=== PATIENT | male | born 1970 ===

== ENCOUNTER 2017-02-20 13:47 | Observation (INO) | payer BC ==
[2017-02-20] MEDS ORDERED: Thiamine 200 MG/2 ML MDV IM ONE (14:00)
--- NOTE | 2017-02-20 14:08 | EDM.PDOC ---
ED HPI GENERAL MEDICAL PROBLEM - General Chief Complaint: General Stated Complaint: FELL AT [employer] Time Seen by Provider: 02/20/17 13:50 Source of Information: Reports: Patient History Limitations: Reports: No Limitations - History of Present Illness INITIAL COMMENTS - FREE TEXT/NARRATIVE: According to the EMT who witnessed patient, he was at the grocery store buying some grocery and soon he started to have shaking of his arms and legs and tired to hold on to the counter top and next landed on the floor and went unconscious. He did have incontinence of urine, but no stool. No tongue biting. Pt was brought into the emergency room. Pt is now awake in the emergency room appears confused. He claims he is in [place], He knows his name. No weakness in the extremities. HE has good bounding pulse. Vitals are stable. His Blood sugar in the emergency room is 120. Apparently His father who is here with him claims that he is a alcoholic , drink a lot of liqor every day. Pt reached his father's place in [place], [place] last night and since then she has not drunk any alcohol. He has been travelling with them since 3 am today. On the way patient started to have severe shakes and tremors. he could not control the tremors, and father was concerned about patient not having had his alcohol since last night. Pt is getting more alert. Onset: Today Onset Date: 02/20/17 Onset Time: 13:00 Duration: Resolved Prior to Arrival Associated Symptoms: Reports: Confusion, Malaise. Denies: Chest Pain, Cough, Diaphoresis, Fever/Chills, Headaches, Nausea/Vomiting, Shortness of Breath, Weakness ED ROS GENERAL - Review of Systems Review Of Systems: See Below Constitutional: Denies: Fever, Chills, Weakness HEENT: Denies: Throat Pain, Throat Swelling, Vision Change Respiratory: Denies: Shortness of Breath, Cough, Sputum Cardiovascular: Denies: Chest Pain, Lightheadedness GI/Abdominal: Denies: Abdominal Pain, Black Stool, Nausea, Stool Incontinence, Vomiting : Reports: Incontinence. Denies: Dysuria, Flank Pain Musculoskeletal: Denies: Joint Pain, Joint Swelling Skin: Denies: Pruritis, Rash ED EXAM, GENERAL - Physical Exam Exam: See Below Exam Limited By: No Limitations General Appearance: Alert, WD/WN, No Apparent Distress, Other (Pt has a cervical collar in place. He is alert at this point. ) Eye Exam: Bilateral Eye: EOMI, PERRL Ears: Normal External Exam, Normal Canal, Hearing Grossly Normal, Normal TMs Nose: Normal Inspection, Normal Mucosa, No Blood Throat/Mouth: Normal Inspection, Normal Lips, Normal Teeth, Normal Gums, Normal Oropharynx, Normal Voice, No Airway Compromise Head: Atraumatic, Normocephalic Neck: Normal Inspection, Supple, Non-Tender, Full Range of Motion Respiratory/Chest: No Respiratory Distress, Lungs Clear, Normal Breath Sounds, No Accessory Muscle Use, Chest Non-Tender Cardiovascular: Normal Peripheral Pulses, Regular Rate, Rhythm, No Edema, No Gallop, No JVD, No Murmur, No Rub Peripheral Pulses: 2+: Radial (L), Radial (R), Dorsalis Pedis (L), Dorsalis Pedis (R) GI/Abdominal: Normal Bowel Sounds, Soft, Non-Tender, No Organomegaly, No Distention, No Abnormal Bruit, No Mass Back Exam: Normal Inspection, Full Range of Motion, NT Extremities: Normal Inspection, Normal Range of Motion, Non-Tender, Normal Capillary Refill, No Pedal Edema Neurological: Alert, Oriented, CN II-XII Intact, Normal Cognition, Normal Gait, Normal Reflexes, No Motor/Sensory Deficits, Other (Pt does have coarse tremors of the hands) Course - Vital Signs Text/Narrative:: Pt has had a episode of seizure. From the history from family members( patient' s father and brother), It does appear very much like alcohol withdrawal seizure. He did receive 2mg of IV Ativan. Also thiamine 100mg IM and Started him on IV Banana bag at 100cc/hr. LAbs have been ordered and CT head and Neck done and are negative. . His CBC and CMP are normal other than mild alkalosis, and mild elevation of AST and ALT. HIS urine drug screen is positive for opioids which he does take for his hip pain. HE does have tremors of the hands. Pt probably had alcohol withdrawal seizure. His ETOH level is 25. Pt claims that he does drink a lot of alcohol. he drinks beer and hot liqor every day and has only had one beer last night. Plan is to admit patient to hospital and place him on alcohol withdrawal protocol over night and monitor for any further seizures. He does have coarse tremors of hands.Pt is hemodynamically stable. - Orders/Labs/Meds Orders: Active Orders 24 hr Category Date Time Status Cervical Spine wo Cont [CT] Stat Exams 02/20/17 13:59 Taken Head wo Cont [CT] Stat Exams 02/20/17 14:08 Taken MVI, Adult with Vitamin K [Infuvite Adult] 10 ml Med 02/20/17 14:15 Active Thiamine [Vitamin B-1] 100 mg Folic Acid 1 mg Magnesium Sulfate [Magnesium Sulfate 50%] 3 gm Sodium Chloride 0.9% [Normal Saline] 1,000 ml IV ASDIRECTED Medication Orders Multivitamins/Minerals 10 ml/Thiamine HCl 100 mg/ Folic Acid 1 mg/ Magnesium Sulfate 3 gm/ Sodium Chloride 1,017.2 mls @ 100 mls/hr IV ASDIRECTED ALYSIA Last Admin: 02/20/17 15:24 Dose: 100 mls/hr Labs: Laboratory Tests 02/20/17 02/20/17 02/20/17 Range/Units 14:00 14:00 14:00 WBC 4.7 (4.0-11.0) K/uL RBC 3.48 L (4.50-6.50) M/uL Hgb 13.2 (13.0-18.0) g/dL Hct 39.2 L (40.0-54.0) % MCV 113 H (76-96) fL MCH 37.9 H (27.0-32.0) pg MCHC 33.7 (31.0-35.0) g/dL RDW 13.3 (11.0-16.0) % Plt Count 97 L (150-400) K/uL MPV 9.5 (6.0-10.0) fL Neut % (Auto) 42.4 L (45.0-70.0) % Lymph % (Auto) 38.4 (20.0-40.0) % Louisa % (Auto) 17.5 H (3.0-10.0) % Eos % (Auto) 0.6 L (1.0-5.0) % Baso % (Auto) 1.1 H (0.0-0.5) % Neut # (Auto) 2.01 (2.00-7.50) K/uL Lymph # (Auto) 1.82 (1.50-4.00) K/uL Louisa # (Auto) 0.83 H (0.20-0.80) K/uL Eos # (Auto) 0.03 L (0.04-0.40) K/uL Baso # (Auto) 0.05 (0.02-0.10) K/uL Sodium 140 (136-145) mmol/L Potassium 3.4 L (3.5-5.1) mmol/L Chloride 101 (98-107) mmol/L Carbon Dioxide 12.4 L* (21.0-32.0) mmol/L Anion Gap 30.0 H (5.0-15.0) mmol/L BUN 14 (8-26) mg/dL Creatinine 1.07 (0.70-1.30) mg/dL Est Cr Clr Drug Dosing TNP Estimated GFR (MDRD) > 60 (>60) MLS/MIN BUN/Creatinine Ratio 13.1 (6-25) Glucose 114 H (74-100) mg/dL Calcium 9.5 (8.5-10.1) mg/dL Phosphorus (2.5-4.9) mg/dL Magnesium (1.8-2.4) mg/dL Total Bilirubin 0.5 (0.0-1.0) mg/dL AST 163 H (15-37) U/L ALT 111 H (12-78) U/L Alkaline Phosphatase 69 (46-116) U/L Total Protein 7.9 (6.4-8.2) g/dL Albumin 4.2 (3.4-5.0) g/dL Globulin 3.7 (2.2-4.2) g/dL Albumin/Globulin Ratio 1.1 (0.8-2.0) Ethyl Alcohol 25.0 H (0.0-0.0) mg/dL 02/20/17 Range/Units 14:00 WBC (4.0-11.0) K/uL RBC (4.50-6.50) M/uL Hgb (13.0-18.0) g/dL Hct (40.0-54.0) % MCV (76-96) fL MCH (27.0-32.0) pg MCHC (31.0-35.0) g/dL RDW (11.0-16.0) % Plt Count (150-400) K/uL MPV (6.0-10.0) fL Neut % (Auto) (45.0-70.0) % Lymph % (Auto) (20.0-40.0) % Louisa % (Auto) (3.0-10.0) % Eos % (Auto) (1.0-5.0) % Baso % (Auto) (0.0-0.5) % Neut # (Auto) (2.00-7.50) K/uL Lymph # (Auto) (1.50-4.00) K/uL Louisa # (Auto) (0.20-0.80) K/uL Eos # (Auto) (0.04-0.40) K/uL Baso # (Auto) (0.02-0.10) K/uL Sodium (136-145) mmol/L Potassium (3.5-5.1) mmol/L Chloride (98-107) mmol/L Carbon Dioxide (21.0-32.0) mmol/L Anion Gap (5.0-15.0) mmol/L BUN (8-26) mg/dL Creatinine (0.70-1.30) mg/dL Est Cr Clr Drug Dosing Estimated GFR (MDRD) (>60) MLS/MIN BUN/Creatinine Ratio (6-25) Glucose (74-100) mg/dL Calcium (8.5-10.1) mg/dL Phosphorus 4.5 (2.5-4.9) mg/dL Magnesium 1.9 (1.8-2.4) mg/dL Total Bilirubin (0.0-1.0) mg/dL AST (15-37) U/L ALT (12-78) U/L Alkaline Phosphatase (46-116) U/L Total Protein (6.4-8.2) g/dL Albumin (3.4-5.0) g/dL Globulin (2.2-4.2) g/dL Albumin/Globulin Ratio (0.8-2.0) Ethyl Alcohol (0.0-0.0) mg/dL Meds: Medications Generic Name Dose Route Start Last Admin Trade Name Freq PRN Reason Stop Dose Admin Multivitamins/Minerals 10 ml/ 1,017.2 mls @ 100 mls/hr 02/20/17 14:15 15:24 Thiamine HCl 100 mg/ Folic IV 100 mls/hr Acid 1 mg/ Magnesium Sulfate 3 ASDIRECTED ALYSIA Administration gm/ Sodium Chloride Discontinued Medications Generic Name Dose Route Start Last Admin Trade Name Laith PRN Reason Stop Dose Admin Lorazepam 2 mg 02/20/17 14:18 02/20/17 13:50 Ativan IVPUSH 02/20/17 14:19 2 mg ONETIME ONE Administration Thiamine HCl 100 mg 02/20/17 14:00 02/20/17 13:58 Vitamin B-1 IM 02/20/17 14:01 100 mg ONETIME ONE Administration Departure - Departure Time of Disposition: 16:15 Disposition: Refer to Observation Condition: fair Clinical Impression: Alcohol withdrawal seizure - Discharge Information - Problem List & Annotations (1) Alcohol withdrawal seizure SNOMED Code(s): 611942117 Code(s): F10.239 - ALCOHOL DEPENDENCE WITH WITHDRAWAL, UNSPECIFIED; R56.9 - UNSPECIFIED CONVULSIONS Status: Acute Current Visit: Yes - Problem List Review Problem List Initiated/Reviewed/Updated: Yes - My Orders Last 24 Hours: My Active Orders 02/20/17 13:59 Cervical Spine wo Cont [CT] Stat 02/20/17 14:08 Head wo Cont [CT] Stat 02/20/17 14:15 MVI, Adult with Vitamin K [Infuvite Adult] 10 ml Thiamine [Vitamin B-1] 100 mg Folic Acid 1 mg Magnesium Sulfate [Magnesium Sulfate 50%] 3 gm Sodium Chloride 0.9% [Normal Saline] 1,000 ml IV ASDIRECTED - Assessment/Plan Last 24 Hours: My Active Orders 02/20/17 13:59 Cervical Spine wo Cont [CT] Stat 02/20/17 14:08 Head wo Cont [CT] Stat 02/20/17 14:15 MVI, Adult with Vitamin K [Infuvite Adult] 10 ml Thiamine [Vitamin B-1] 100 mg Folic Acid 1 mg Magnesium Sulfate [Magnesium Sulfate 50%] 3 gm Sodium Chloride 0.9% [Normal Saline] 1,000 ml IV ASDIRECTED Assessment:: alcohol withdrawal seizure Plan: Pt has had a episode of seizure. From the history from family members( patient' s father and brother), It does appear very much like alcohol withdrawal seizure. He did receive 2mg of IV Ativan. Also thiamine 100mg IM and Started him on IV Banana bag at 100cc/hr. LAbs have been ordered and CT head and Neck done and are negative. . His CBC and CMP are normal other than mild alkalosis, and mild elevation of AST and ALT. HIS urine drug screen is positive for opioids which he does take for his hip pain. HE does have tremors of the hands. Pt probably had alcohol withdrawal seizure. His ETOH level is 25. Pt claims that he does drink a lot of alcohol. he drinks beer and hot liqor every day and has only had one beer last night. Plan is to admit patient to hospital and place him on alcohol withdrawal protocol over night and monitor for any further seizures. He does have coarse tremors of hands.Pt is hemodynamically stable.
[2017-02-20] MEDS ORDERED: MVI, Adult with Vitamin K 10 ML, Thiamine 100 MG, Folic Acid 1 MG, Magnesium Sulfate 3 ... IV SCH ×5 (14:15)
[2017-02-20] MEDS ORDERED: LORazepam 2 MG/ML MDV IVPUSH ONE (14:18)
[2017-02-20] MEDS: LORazepam 2 MG/ML MDV IVPUSH PRN ×5 (16:30→20:10)
[2017-02-20] MEDS ORDERED: Sodium Chloride 0.9% 10 ML Syringe FLUSH PRN (16:39)
--- NOTE | 2017-02-20 20:30 | PCM.DCSUM1 ---
Discharge Summary - Hospital Course Free Text/Narrative:: Pt was admitted to hospital with diagnosis of alcohol withdrawal seizure with tremors. As he was having withdrawal tremors. He was placed on ativan withdrawal protocol per CIWA_AR score.Pt has been scoring high about 22. Hence he had received total of 10mg of ativan until now. Pt continues to be confused delirious and hallucinating, with coarse tremors. My concern is that he is getting high dose ativan and he might soon go into respiratory depression from benzodiazepine and out facility is not equipped with ventilator if needed. Hence I did contact [facility] and [facility] patient condition with Dr. Willams, hospitalist head bone grinder. Who did agree to accept patient. Pt has been transferred by [facility] ambulance to [facility] under care of . Brief History: Pt presented with Seizure today at the [employer] [facility]. kindly see H &P - Discharge Data Discharge Date: 02/20/17 Discharge Disposition: DC/Tfer to Acute Hospital 02 Condition: Fair - Discharge Diagnosis/Problem(s) (1) Alcohol withdrawal seizure SNOMED Code(s): 560867905 ICD Code: F10.239 - ALCOHOL DEPENDENCE WITH WITHDRAWAL, UNSPECIFIED; R56.9 - UNSPECIFIED CONVULSIONS Status: Acute Current Visit: Yes - Patient Instructions Diet: NPO - Discharge Plan Home Medications: Home Meds . [Unable to Verify Home Med List] 02/20/17 [History] Forms: ED Department Discharge - Discharge Summary/Plan Comment DC Time >30 min.: Yes Discharge Summary/Plan Comment: Pt is getting delirious and tremors are getting worse. Will need ICU level of Care.Hence Patient transferred to [facility] under care of . - General Info Date of Service: 02/20/17 Admission Dx/Problem (Free Text: Pt id very delirious Cannot obtain any history - Patient Data Vitals - Most Recent: Last Vital Signs Temp 98.7 F 02/20/17 18:35 Pulse 79 02/20/17 18:35 Resp 20 02/20/17 18:35 BP 149/87 H 02/20/17 18:35 Pulse Ox 97 02/20/17 18:35 Weight - Most Recent: 78.018 kg I&O - Last 24 hours: Intake & Output 02/20/17 02/20/17 02/20/17 06:59 14:59 22:59 Intake Total 637 Output Total 200 Balance 437 Lab Results - Last 24 hrs: Laboratory Results - last 24 hr 02/20/17 02/20/17 Range/Units 15:48 15:48 Urine Color Yellow Urine Appearance Clear (CLEAR) Urine pH 5.5 (5.0-8.0) Ur Specific [place] >= 1.030 (1.003-1.030) Urine Protein 100 H (NEGATIVE) mg/dL Urine Glucose (UA) Negative (NEGATIVE) mg/dL Urine Ketones 15 H (NEGATIVE) mg/dL Urine Occult Blood Small H (NEGATIVE) Urine Nitrite Negative (NEGATIVE) Urine Bilirubin Negative (NEGATIVE) Urine Urobilinogen 0.2 (0.2-1.0) E.U./dL Ur Leukocyte Esterase Negative (NEGATIVE) Urine RBC Not seen /HPF Urine WBC 0-5 H /HPF Ur Squamous Epith Cells Occasional /HPF Urine Bacteria Not seen /HPF Fine Granular Casts Occasional /HPF Urine Opiates Screen Negative (NEGATIVE) Ur Oxycodone Screen Positive H (NEGATIVE) Urine Methadone Screen Negative (NEGATIVE) U Acetaminophen Screen Positive H (NEGATIVE) Ur Barbiturates Screen Negative (NEGATIVE) Ur Tricyclics Screen Negative (NEGATIVE) Ur Phencyclidine Scrn Negative (NEGATIVE) Ur Amphetamine Screen Negative (NEGATIVE) U Methamphetamines Scrn Negative (NEGATIVE) U Benzodiazepines Scrn Negative (NEGATIVE) U Cocaine Metab Screen Negative (NEGATIVE) U Marijuana (THC) Screen Negative (NEGATIVE) Med Orders - Current: Current Medications Multivitamins/Minerals 10 ml/Thiamine HCl 100 mg/ Folic Acid 1 mg/ Magnesium Sulfate 3 gm/ Sodium Chloride 1,017.2 mls @ 100 mls/hr IV ASDIRECTED ALYSIA Last Admin: 02/20/17 15:24 Dose: 100 mls/hr Lorazepam (Ativan) 0 mg IVPUSH Q4H PRN; Protocol PRN Reason: Withdrawal Symptoms Last Admin: 02/20/17 20:10 Dose: 2 mg Sodium Chloride (Saline Flush) 10 ml FLUSH ASDIRECTED PRN PRN Reason: Keep Vein Open Discontinued Medications Lorazepam (Ativan) 2 mg IVPUSH ONETIME ONE Stop: 02/20/17 14:19 Last Admin: 02/20/17 13:50 Dose: 2 mg Thiamine HCl (Vitamin B-1) 100 mg IM ONETIME ONE Stop: 02/20/17 14:01 Last Admin: 02/20/17 13:58 Dose: 100 mg - Exam Quality Assessment: Reports: supplemental oxygen General: Reports: other (dilirious and confused.) HEENT: Reports: Pupils equal, Pupils reactive, EOMI, Mucous membr. moist/pink Neck: Reports: supple Lungs: Reports: Clear to auscultation, Normal respiratory effort Cardiovascular: Reports: Regular Rate, Regular Rhythm Abdomen: Reports: bowel sounds present, soft, no tenderness Extremities: Reports: no edema, normal pulses, calf tenderness Skin: Reports: warm, intact Neurological: Reports: other (Hard to evaluate) Psy/Mental Status: Reports: withdrawal symptoms (from alochol) *Q Meaningful Use (DIS) - VTE *Q VTE Criteria *Q: - Stroke *Q Stroke Criteria *Q: - AMI *Q AMI Criteria *Q:
[2017-02-20] MEDS ORDERED: LORazepam 2 MG/ML MDV ONE (20:40)
[2017-02-20] MEDS ORDERED: [UNRECOGNIZED DRUG - OTHER] IV ONE ×5 (20:45)
[2017-02-20] MEDS ORDERED: FOLIC ACID IV ONE ×5 (20:45)
[2017-02-20] MEDS ORDERED: THIAMINE IV ONE ×5 (20:45)
[2017-02-20] MEDS ORDERED: MVI IV ONE ×5 (20:45)
[2017-02-20] MEDS ORDERED: VITAMIN K IV ONE ×5 (20:45)
--- NOTE | 2017-02-21 00:29 | CT ---
DATE OF SERVICE: 02/20/2017 CLINICAL DATA: Seizure with loss of consciousness. UNENHANCED BRAIN CT Multislice acquisition through the brain without IV contrast was performed. No priors. I do not see any masses or mass effect. No intracranial hemorrhage. No evidence of acute or subacute infarct. There is minimal mucosal thickening in the ethmoid sinuses consistent with chronic sinusitis. There is a rounded low density lesion within the left sphenoid sinus consistent with a retention cyst or polyp. No osseous abnormalities. IMPRESSION: NO ACUTE INTRACRANIAL ABNORMALITIES. [id number] [facility]
--- NOTE | 2017-02-21 00:34 | CT ---
DATE OF SERVICE: 02/20/2017 CLINICAL DATA: Seizure with fall. CERVICAL SPINE CT Multislice acquisition from the base of the skull to T2 was performed. Axial images and sagittal and coronal reformations are reviewed. The vertebral bodies are of average height and in good alignment. No acute fracture or dislocation. No lytic or blastic bone lesions. There is minimal degenerative disc disease at multiple levels. No significant central or foraminal stenosis. The posterior spinous process of C7 is partially cut off. The soft tissues are unremarkable. IMPRESSION: No acute abnormality. [id number] [facility]
[2017-02-21 03:10] VITALS: BP 152/97
== END 2017-02-20 20:45 ==
LOC: LB.ED 13:47 → UNDOADMOB 15:30 → LB.MS 15:30 → UNDODISOB 20:45
PROVIDERS: ADMIT Family Medicine; ATTEND Family Medicine
DX: F10.239 Alcohol dependence with withdrawal, unspecified (principal); Z79.899 Other long term (current) drug therapy
CPT/HCPCS: 36415; 70450; 72125; 80053; 80307; 81001; 83735; 84100; 85025; 96372; 96374; 96376; 99285; A0425; A0429; G0378; G0480; J2060; J3411; J3475; J7040; J3490